=== PATIENT | female | born 1960 | race Two or more races ===

== ENCOUNTER 2017-06-22 12:39 | Outpatient (CLI) | payer OTHER ==
[~2017-06-22 12:39] MED LIST: ATACAND4 MG; CRESTOR20 MG; DICLOFENAC SODI75 MG PO; DOLOGESIC CAPLE1 TAB PO; FLEXERIL5 MG PO; LEXAPRO5 MG; NABUMETONE500 MG PO; TRICOR48 MG
== END 2017-06-22 12:46 | disposition home or self-care (01) ==
LOC: RAD 501 12:39
DX: M25.521 Pain in right elbow (principal)

== ENCOUNTER 2017-06-22 15:00 | Outpatient (CLI) | payer OTHER | END 2017-06-22 15:09 | disposition home or self-care (01) | LOC: RAD 15:00 | DX: M54.2 Cervicalgia (principal) ==

== ENCOUNTER 2017-07-06 11:49 | Outpatient (CLI) | payer OTHER ==
[~2017-07-06 11:49] MED LIST changes: +VOLTAREN100 GM TOP
== END 2017-07-06 14:22 | disposition home or self-care (01) ==
LOC: SONOGRAMA 11:49
DX: M25.511 Pain in right shoulder (principal)

== ENCOUNTER → 2017-07-25 | Outpatient (CLI) | payer OTHER | END | disposition home or self-care (01) | LOC: LAB 08:40 | DX: N39.0 Urinary tract infection, site not specified (principal); M05.79 Rheumatoid arthritis with rheumatoid factor of multiple sites without organ or systems involvement; R82.79 Other abnormal findings on microbiological examination of urine ==

== ENCOUNTER 2017-08-12 06:54 | Day surgery (SDC) | payer OTHER ==
[~2017-08-12 06:54] MED LIST changes: +ATACAND HCT 321 EAC1 PO; +FENOFIBRATE160 MG PO; +METFORMIN HCL500 MG PO; +SYNTHROID75 MCG PO
[2017-08-12] MEDS ORDERED: DOLOGESIC 500-1 EACH PO (09:46)
[2017-08-12] MEDS ORDERED: NABUMETONE500 MG PO (09:47)
== END 2017-08-12 14:30 | disposition home or self-care (01) ==
LOC: CIR.AMB 06:54
DX: M75.122 Complete rotator cuff tear or rupture of left shoulder, not specified as traumatic (principal); M13.811 Other specified arthritis, right shoulder; M75.41 Impingement syndrome of right shoulder

== ENCOUNTER 2017-09-16 09:03 | Outpatient (CLI) | payer OTHER ==
[~2017-09-16 09:03] MED LIST changes: +DOLOGESIC 500-1 EACH PO
== END 2017-09-16 09:17 | disposition home or self-care (01) ==
LOC: MAMO-SONO 09:03
DX: Z12.31 Encounter for screening mammogram for malignant neoplasm of breast (principal); N60.11 Diffuse cystic mastopathy of right breast

== ENCOUNTER 2017-09-28 08:21 | Outpatient (CLI) | payer OTHER ==
[~2017-09-28] VITALS: Ht 160 cm; Wt 65.8 kg
[2017-09-28] MEDS ORDERED: FLONASE16 GM NASAL (11:05)
[2017-09-28] MEDS ORDERED: ZYRTEC10 MG PO (11:06)
== END 2017-09-28 08:45 | disposition home or self-care (01) ==
LOC: OFIC 805 08:21
DX: J31.0 Chronic rhinitis (principal); J32.8 Other chronic sinusitis; R05 Cough

== ENCOUNTER → 2017-10-03 | Outpatient (CLI) | payer OTHER ==
[~2017-10-03] MED LIST changes: +FLONASE16 GM NASAL; +ZYRTEC10 MG PO
== END | disposition home or self-care (01) ==
LOC: TOM 10:15
DX: J32.9 Chronic sinusitis, unspecified (principal)

== ENCOUNTER 2017-10-05 10:29 | Outpatient (CLI) | payer OTHER ==
[~2017-10-05] VITALS: Ht 152.4 cm; Wt 65.8 kg
== END 2017-10-05 10:45 | disposition home or self-care (01) ==
LOC: OFIC 805 10:29
DX: J32.8 Other chronic sinusitis (principal); J31.0 Chronic rhinitis

== ENCOUNTER 2018-04-12 07:51 | Outpatient (CLI) | payer OTHER | END 2018-04-12 07:53 | disposition home or self-care (01) | LOC: RX STUDY 07:51 | DX: K58.0 Irritable bowel syndrome with diarrhea (principal); R19.4 Change in bowel habit; K92.1 Melena; R14.1 Gas pain ==

== ENCOUNTER 2018-08-22 09:44 | Day surgery (SDC) | payer OTHER | END 2018-08-22 14:45 | disposition home or self-care (01) | LOC: AMB-ENDOS 09:44 | DX: K57.30 Diverticulosis of large intestine without perforation or abscess without bleeding (principal) ==

== ENCOUNTER 2018-09-11 10:29 | Outpatient (CLI) | payer OTHER | END 2018-09-11 10:36 | disposition home or self-care (01) | LOC: LAB 10:29 | DX: G44.52 New daily persistent headache (NDPH) (principal); Z51.81 Encounter for therapeutic drug level monitoring ==

== ENCOUNTER → 2018-09-11 | Outpatient (CLI) | payer OTHER | END | disposition home or self-care (01) | LOC: MRI 11:55 | DX: G44.029 Chronic cluster headache, not intractable (principal) | CPT/HCPCS: 70553 ==

== ENCOUNTER 2018-10-25 08:21 | Outpatient (CLI) | payer OTHER ==
[~2018-10-25] VITALS: Ht 152.4 cm; Wt 63.5 kg
[2018-10-25] MEDS ORDERED: ZYRTEC10 MG PO (10:30)
[2018-10-25] MEDS ORDERED: FLONASE16 GM NASAL (10:30)
[2018-10-25] MEDS ORDERED: ZANTAC300 MG PO (10:30)
[2018-10-25] MEDS ORDERED: OMEPRAZOLE40 MG PO (10:31)
[2018-10-25] MEDS ORDERED: FAMCICLOVIR500 MG PO (10:32)
== END 2018-10-25 08:40 | disposition home or self-care (01) ==
LOC: OFIC 805 08:21
DX: J32.8 Other chronic sinusitis (principal); J31.0 Chronic rhinitis; M05.9 Rheumatoid arthritis with rheumatoid factor, unspecified; K12.1 Other forms of stomatitis

== ENCOUNTER 2020-01-10 09:53 | Outpatient (CLI) | payer OTHER ==
[~2020-01-10 09:53] MED LIST changes: +FAMCICLOVIR500 MG PO; +OMEPRAZOLE40 MG PO; +ZANTAC300 MG PO
== END 2020-01-10 10:12 | disposition home or self-care (01) ==
LOC: EDBD 09:53 → MAMO-SONO 09:53
DX: Z12.31 Encounter for screening mammogram for malignant neoplasm of breast (principal); N63.10 Unspecified lump in the right breast, unspecified quadrant; N63.20 Unspecified lump in the left breast, unspecified quadrant; R10.84 Generalized abdominal pain

== ENCOUNTER 2020-04-23 07:46 | Outpatient (CLI) | payer OTHER | END 2020-04-23 07:50 | disposition home or self-care (01) | LOC: LAB 07:46 | PROVIDERS: ATTEND Internal Medicine Rheumatology | DX: E55.9 Vitamin D deficiency, unspecified (principal); M05.79 Rheumatoid arthritis with rheumatoid factor of multiple sites without organ or systems involvement ==

== ENCOUNTER → 2023-04-19 | Outpatient (CLI) | payer OTHER | END | disposition home or self-care (01) | LOC: NUCLEAR 13:30 | PROVIDERS: ATTEND Family Medicine | DX: M81.0 Age-related osteoporosis without current pathological fracture (principal) ==

== ENCOUNTER 2023-06-02 13:53 | Outpatient (CLI) | payer OTHER | END 2023-06-02 14:03 | disposition home or self-care (01) | LOC: MAMO-SONO 13:53 | DX: Z12.31 Encounter for screening mammogram for malignant neoplasm of breast (principal) ==

== ENCOUNTER 2023-07-15 07:57 | Outpatient (CLI) | payer OTHER | END 2023-07-15 08:07 | disposition home or self-care (01) | LOC: SONOGRAMA 07:57 | PROVIDERS: ATTEND Internal Medicine Gastroenterology | DX: R10.9 Unspecified abdominal pain (principal) ==

== ENCOUNTER 2024-07-12 13:25 | Outpatient (CLI) | payer OTHER | END 2024-07-12 13:28 | disposition home or self-care (01) | LOC: MAMO-SONO 13:25 | PROVIDERS: ATTEND Obstetrics & Gynecology | DX: Z12.31 Encounter for screening mammogram for malignant neoplasm of breast (principal); N60.11 Diffuse cystic mastopathy of right breast ==

== ENCOUNTER 2024-07-16 07:27 | Outpatient (CLI) | payer OTHER | END 2024-07-16 07:30 | disposition home or self-care (01) | LOC: TOM 07:27 | PROVIDERS: ATTEND Internal Medicine Gastroenterology | DX: K92.1 Melena (principal); R10.9 Unspecified abdominal pain ==